=== PATIENT | male | born 1975 | race Caucasian/White ===

== ENCOUNTER → 2018-07-06 11:53 | Outpatient (CLI) | payer OTHER, SELFPAY ==
[2018-07-09 13:04] LABS: Testosterone Free 67.5 pg/mL (35.0-155.0); Testosterone Total 256 ng/dL (250-1100)
== END ==
PROVIDERS: PCP Family Medicine; Visit Provider Family Medicine
DX: F41.9 Anxiety disorder, unspecified (principal); N52.9 Male erectile dysfunction, unspecified; R68.82 Decreased libido
CPT/HCPCS: 36415; 84402; 84403

== ENCOUNTER → 2018-08-04 11:00 | Outpatient (CLI) | payer OTHER, SELFPAY ==
[2018-08-04 12:55] LABS: Alanine Aminotransferase 73 IU/L (21-72); Albumin 4.4 g/dL (3.5-5.0); Albumin Globulin Ratio 1.7 (1.0-2.8); Alkaline Phosphatase 67 U/L (38-126); Aspartate Aminotransferase 55 IU/L (17-59); Bilirubin Total 0.6 mg/dL (0.2-1.3); Blood Urea Nitrogen 15 mg/dL (9-20); Calcium 9.6 mg/dL (8.4-10.2); Carbon Dioxide 28 mmol/L (22-32); Chloride 101 mmol/L (98-107); Estimated Glomerular Filt Rate > 60.0 mL/min (>60); Globulin 2.6 g/dL (1.7-4.1); Glucose 110 mg/dL (70-100); HEMOLYSIS < 15 (0-50); Potassium 4.7 mmol/L (3.4-5.1); Sodium 140 mmol/L (137-145)
[2018-08-04 13:08] LABS: Luteinizing Hormone 1.71 mIU/mL
[2018-08-08 13:28] LABS: Testosterone Free 112.8 pg/mL (35.0-155.0); Testosterone Total 327 ng/dL (250-1100)
== END ==
PROVIDERS: PCP Family Medicine; Visit Provider Family Medicine
DX: N52.9 Male erectile dysfunction, unspecified (principal); E66.9 Obesity, unspecified
CPT/HCPCS: 36415; 80053; 83001; 83002; 84402; 84403

== ENCOUNTER → 2022-08-13 16:46 | Outpatient (CLI) | payer OTHER, SELFPAY | PROVIDERS: PCP Family Medicine; Visit Provider Family Medicine | DX: R59.9 Enlarged lymph nodes, unspecified (principal) | CPT/HCPCS: 87070 ==

== ENCOUNTER → 2022-08-13 16:56 | Outpatient (CLI) | payer OTHER, SELFPAY ==
[2022-08-13 17:46] LABS: Add Manual Diff / Slide Review NO; Basophils Absolute Auto 0 /uL (0-100); Basophils Percent Auto 0.3 % (0-2); Eosinophils Absolute Auto 100 /uL (0-450); Eosinophils Percent Auto 0.9 % (2-4); Hematocrit 43.8 % (41-53); Hemoglobin 15.6 g/dL (13.5-17.5); Lymphocytes Absolute Auto 1800 /uL (1100-4500); Lymphocytes Percent Auto 17.6 % (25-40); Mean Corpuscular HGB Conc 35.6 % (30-36); Mean Corpuscular Hemoglobin 33.9 PG (26-34); Mean Corpuscular Volume 95.3 fL (80-100); Monocytes Absolute Auto 900 /uL (0-900); Monocytes Percent Auto 8.5 % (3-14); Neutrophils Absolute Auto 7400 /uL (1500-7000); Neutrophils Percent Auto 72.7 % (50-75); Platelet Count 278 X10^3/uL (150-400); Red Cell Distribution Width 13.8 % (11.6-14.8); White Blood Cell Count 10.1 X10^3/uL (4.5-11.0)
[2022-08-13 18:31] LABS: Erythrocyte Sedimentation Rate 2 MM/HR (0-15)
[2022-08-13 18:38] LABS: Alanine Aminotransferase 38 IU/L (<50); Albumin 4.5 g/dL (3.5-5.0); Albumin Globulin Ratio 1.5 (1.0-2.8); Alkaline Phosphatase 57 U/L (38-126); Aspartate Aminotransferase 34 IU/L (17-59); BUN Creatinine Ratio 11.5 (6-22); Bilirubin Total 0.7 mg/dL (0.2-1.3); Blood Urea Nitrogen 11 mg/dL (9-20); C-Reactive Protein Quant < 0.5 mg/dL (<1.0); Calcium 9.4 mg/dL (8.4-10.2); Carbon Dioxide 29 mmol/L (22-32); Chloride 100 mmol/L (98-107); Estimated Glomerular Filt Rate > 60 mL/min (>60); Globulin 3.1 g/dL (1.7-4.1); Glucose 107 mg/dL (70-100); HEMOLYSIS < 15 (0-50); Potassium 3.9 mmol/L (3.4-5.1); Sodium 139 mmol/L (137-145); Total Protein 7.6 g/dL (6.3-8.2)
[2022-08-13 19:03] LABS: TSH w/ Reflex to FT4 2.66 uIU/mL (0.47-4.68)
== END ==
PROVIDERS: PCP Family Medicine; Referring Provider Family Medicine; Visit Provider Family Medicine
DX: R59.1 Generalized enlarged lymph nodes (principal)
CPT/HCPCS: 36415; 80053; 84443; 85025; 85651; 86140; 87070

== ENCOUNTER → 2022-08-31 10:38 | Outpatient (CLI) | payer OTHER, SELFPAY ==
[2022-08-31 12:00] LABS: Influenza A - CEPHEID Flu A NEGATIVE (NEGATIVE); Influenza B - CEPHEID Flu B NEGATIVE (NEGATIVE); Respiratory Syncytial Virus Negative (Negative)
[2022-08-31 12:02] LABS: COVID-19 CEPHEID 4-PLEX PCR Negative (Negative)
== END ==
PROVIDERS: PCP Family Medicine; Visit Provider Nurse Practitioner Family
DX: R05.9 Cough, unspecified (principal)
CPT/HCPCS: 0241U

== ENCOUNTER 2022-09-12 13:21 | Emergency (ER) | payer OTHER, SELFPAY ==
[2022-09-12] VITALS (9 sets, daily range): BP systolic 130–183; BP diastolic 69–121; PULSE 70–79; RESP 16–18; TEMP 36.6; O2SAT 96–100; BMI 31.7
[2022-09-12] MEDS: KETOROLAC 30 MG/ML VIAL 15 MG IV (17:56)
[2022-09-12] MEDS: TET,DIPH,PERTUSS(ACELL),VAC/PF 0.5 ML SYRINGE IM (17:57)
[2022-09-12] MEDS: BACITRACIN OINT 0.9 GM PCKT 1 APPLIC TOP (17:58)
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
[2022-09-12] MEDS: cephALEXin 250 MG CAPSULE 500 MG PO (19:02)
== END 2022-09-12 19:07 | disposition home or self-care (01) ==
PROVIDERS: Emergency Provider Nurse Practitioner Critical Care Medicine; PCP Family Medicine
DX: T22.212A Burn of second degree of left forearm, initial encounter (principal); Z23 Encounter for immunization; X10.2XXA Contact with fats and cooking oils, initial encounter; Y99.0 Civilian activity done for income or pay
CPT/HCPCS: 12001; 90471; 99283; 99284; 90715; J1885

== ENCOUNTER → 2022-09-22 14:12 | Outpatient (CLI) | payer OTHER, SELFPAY | PROVIDERS: PCP Family Medicine; Referring Provider Nurse Practitioner Critical Care Medicine; Visit Provider Surgery | DX: T22.212A Burn of second degree of left forearm, initial encounter (principal); X10.2XXA Contact with fats and cooking oils, initial encounter | CPT/HCPCS: 99203; 99213 ==

== ENCOUNTER → 2023-02-19 12:16 | Outpatient (CLI) | payer OTHER, SELFPAY ==
[2023-02-19 13:28] LABS: Add Manual Diff / Slide Review NO; Basophils Absolute Auto 0 /uL (0-100); Basophils Percent Auto 0.2 % (0-2); Eosinophils Absolute Auto 100 /uL (0-450); Eosinophils Percent Auto 0.7 % (2-4); Hematocrit 43.6 % (41-53); Hemoglobin 15.7 g/dL (13.5-17.5); Lymphocytes Absolute Auto 1300 /uL (1100-4500); Lymphocytes Percent Auto 14.1 % (25-40); Mean Corpuscular Hemoglobin 34.2 PG (26-34); Mean Corpuscular Volume 94.8 fL (80-100); Monocytes Absolute Auto 900 /uL (0-900); Monocytes Percent Auto 9.5 % (3-14); Neutrophils Absolute Auto 6900 /uL (1500-7000); Neutrophils Percent Auto 75.5 % (50-75); Platelet Count 269 X10^3/uL (150-400); Red Cell Distribution Width 13.1 % (11.6-14.8); White Blood Cell Count 9.1 X10^3/uL (4.5-11.0)
[2023-02-19 13:51] LABS: Alanine Aminotransferase 52 IU/L (<50); Albumin 4.3 g/dL (3.5-5.0); Albumin Globulin Ratio 1.3 (1.0-2.8); Alkaline Phosphatase 90 U/L (38-126); Aspartate Aminotransferase 42 IU/L (17-59); Bilirubin Total 0.7 mg/dL (0.2-1.3); Blood Urea Nitrogen 8 mg/dL (9-20); Calcium 8.8 mg/dL (8.4-10.2); Carbon Dioxide 24 mmol/L (22-32); Chloride 100 mmol/L (98-107); Cholesterol 187 mg/dL (140-199); Estimated Glomerular Filt Rate > 60 mL/min (>60); Globulin 3.2 g/dL (1.7-4.1); Glucose 112 mg/dL (70-100); HDL Cholesterol 30 mg/dL (40-60); Lipase 81 U/L (23-300); Potassium 4.1 mmol/L (3.4-5.1); Sodium 134 mmol/L (137-145); Total Protein 7.5 g/dL (6.3-8.2)
[2023-02-19 13:59] LABS: HEMOLYSIS 25 (0-50)
[2023-02-19 14:13] LABS: Triglycerides 805 mg/dL (35-150)
[2023-02-20 09:51] LABS: x Labcorp Estim. Avg Glu (eAG) 114 mg/dL (.); x Labcorp Hemoglobin A1c 5.6 % (4.8-5.6)
== END ==
PROVIDERS: PCP Family Medicine; Referring Provider Family Medicine; Visit Provider Family Medicine
DX: E78.5 Hyperlipidemia, unspecified (principal); F41.8 Other specified anxiety disorders; R10.30 Lower abdominal pain, unspecified
CPT/HCPCS: 36415; 80053; 80061; 83036; 83690; 85025

== ENCOUNTER → 2023-06-16 12:35 | Outpatient (CLI) | payer OTHER, SELFPAY ==
[2023-06-16 15:41] LABS: BUN Creatinine Ratio 12.6 (6-22); Blood Urea Nitrogen 11 mg/dL (9-20); Carbon Dioxide 27 mmol/L (22-32); Chloride 98 mmol/L (98-107); Cholesterol 125 mg/dL (140-199); Estimated Glomerular Filt Rate > 60 mL/min (>60); Glucose 166 mg/dL (70-100); HDL Cholesterol 26 mg/dL (40-60); HEMOLYSIS < 15 (0-50); LDL Cholesterol Calculated 36 mg/dL (<100); Potassium 3.9 mmol/L (3.4-5.1); Sodium 135 mmol/L (137-145); Triglycerides 315 mg/dL (35-150)
== END ==
PROVIDERS: PCP Family Medicine; Referring Provider Family Medicine; Visit Provider Family Medicine
DX: E78.5 Hyperlipidemia, unspecified (principal); I10 Essential (primary) hypertension
CPT/HCPCS: 36415; 80048; 80061

== ENCOUNTER → 2023-10-20 14:54 | Outpatient (CLI) | payer OTHER, SELFPAY ==
--- NOTE | 2023-10-20 14:56 | DI.RAD.S_ITS ---
PROCEDURE: XR SACRUM COCCYX MIN 2V INDICATIONS: sacral pain x 2 month TECHNIQUE: 3 views of the sacrum and coccyx acquired. COMPARISON: None. FINDINGS: Bones: No acute sacral or coccygeal fractures or dislocations. No suspicious bony lesions. Soft tissues: Visualized bowel gas pattern is normal. No suspicious soft tissue densities. IMPRESSION: No acute sacral or coccygeal fracture. No gross soft tissue abnormalities. Dictated by: Horace Bhardwaj M.D. on 10/20/2023 at 17:14 Approved by: Horace Bhardwaj M.D. on 10/20/2023 at 17:14
== END ==
LOC: RAD 14:56
PROVIDERS: PCP Family Medicine; Referring Provider Family Medicine; Visit Provider Family Medicine
DX: M53.3 Sacrococcygeal disorders, not elsewhere classified (principal)
CPT/HCPCS: 72220

== ENCOUNTER 2023-10-26 09:44 | Day surgery (SDC) | payer OTHER, SELFPAY ==
--- NOTE | 2023-10-26 | PATH_ITS ---
[facility] Accession Number: [id number] No. of containers..01 Tissue . 01 Material submitted: . colon - ASCENDING COLON POLYP . 01 Diagnosis: Ascending Colon Polyp: Tubular adenoma. MRV 10/28/2023 1601 Local . 01 Electronically signed: . Guillaume Murdock MD, PhD, Pathologist NPI- [id number] . 01 Gross description: . ASCENDING COLON POLYP: Received in formalin is 1 fragment(s) of leyva, soft tissue measuring 0.5 x 0.3 x 0.3 cm submitted entirely in 1 cassette(s) /CB 10/27/2023 1931 Local . 01 Pathologist provided ICD-10: D12.2 . 01 CPT . 625803 Specimen Comment: A courtesy copy of this report has been sent to [phone] Performed at: 01 [facility] [address] [place] [address], [place], [place] [id number] MD Manjit Palacios MD Phone: [phone]
[2023-10-26] MEDS: LACTATED RINGERS 1,000 ML 100 ML IV ×2 (10:06→11:19)
[2023-10-26 10:14] VITALS: BP 165/100; PULSE 79; RESP 16; TEMP 36.1; O2SAT 99
--- NOTE | 2023-10-26 11:07 | PM.HP.1 ---
History of Present Illness History of Present Illness Date Patient Seen: 10/26/23 Time Patient Seen: 11:07 Chief complaint: Colonoscopy Narrative: The patient presents for colorectal screening. They have never had any previous examination for such. No personal or family history of colon cancer. No major abdominal concerns today. [facility] Medical History Benign essential HTN Depression Erectile dysfunction LAYNE (obstructive sleep apnea) Alcohol use disorder Class 1 obesity RLS (restless legs syndrome) Alcohol abuse Substance abuse (~2002) Anxiety GERD (gastroesophageal reflux disease) Surgical History Anesthesia History of vasectomy History of umbilical hernia repair (~2007) History of knee surgery (~2005) Status post LASIK surgery (05/2016) Family History Father Alcoholic Grandfather Diabetes mellitus Social History marital status: number of children: 3 household members: spouse education level: high school occupational status: employed Smoking Status: Former smoker alcohol intake: current substance use type: does not use Meds Home Medications and Allergies Home Medications Medication Instructions Recorded Confirmed Type sildenafil 100 mg tablet (Viagra) 50 - 100 mg (0.5 - 1 x 100 mg) PO 02/15/23 10/26/23 Rx DAILY PRN sexual activity #30 tabs rosuvastatin 20 mg tablet (Crestor) 20 mg PO DAILY #90 tabs 03/17/23 10/26/23 Rx trazodone 50 mg tablet 50 mg PO BEDTIME PRN insomnia #90 03/17/23 10/26/23 Rx tabs losartan 50 mg tablet 50 mg PO DAILY blood pressure #90 06/16/23 10/26/23 Rx tabs fluoxetine 10 mg capsule 25 mg PO DAILY 10/20/23 10/26/23 History gabapentin 600 mg tablet 600 mg PO DAILY 10/20/23 10/26/23 History Allergies Allergy/AdvReac Type Severity Reaction Status Date / Time Penicillins Allergy PT NOT Verified 10/20/23 14:23 ABLE TO REMEMBER Exam Vital Signs (past 8 hours): - 10/26/23 10:14 Temperature 97 F L Pulse Rate 79 Respiratory Rate 16 Blood Pressure 165/100 H Pulse Oximetry 99 Oxygen Delivery Method Room Air Oxygen Delivery Method Room Air Narrative Exam Narrative: General adult man alert oriented no acute distress Chest nonlabored respiration Extremities warm well perfused Assessment & Plan Assessment & Plan narrative: The patient requires colorectal screening and colonoscopy is recommended. Technical details were discussed. Risks, benefits, alternatives explained. Risks including but not limited to myocardial infarction, aspiration, bleeding, pain, missed lesion, incomplete examination, need for further radiographic studies, colonic perforation, and need for major abdominal surgery were discussed. All questions were answered to their satisfaction, and they are in agreement with this plan.
--- NOTE | 2023-10-26 11:11 | P.OP.COLON_ITS ---
Operative Date/Time/Diagnoses Date of procedure: 10/26/23 Time of procedure: 11:11 Pre-op diagnosis: Colorectal screening Procedure & Clinicians Study performed: Colonoscopy Same procedure as scheduled: Yes Indications: Colorectal screening Surgeon: Kashmir Rodriguez Procedure Notes Procedure in detail: The history and physical was performed/updated and the patient is ASA class is 2. The procedure was discussed in detail with the patient. Potential risks complications including infection, bleeding, missed diagnosis, perforation, need for surgery, and were explained. Their questions were answered and informed consent was obtained. Patient was brought to the procedure room and placed standard monitoring equipment. The patient's vital signs were monitored continuously throughout the entire procedure. Prior to starting time-out was performed. The patient was placed in the left lateral recumbent position. Procedural sedation was administered by anesthesia. Examination began with a thorough inspection of the perianal area there was no evidence of fissures, fistulae, external hemorrhoids or cutaneous malignancy. The colonoscopy scope was then placed into the anal canal and was advanced to the cecum, which was identified by the ileocecal valve , the appendiceal orifice and the confluence of the taenia. The scope was then slowly withdrawn examining colon thoroughly in all directions, irrigating it of any residual stool. The scope was retroflexed within the rectum The patient tolerated the procedure well. They will be discharged once criteria are met. The prep was of good/excellent quality. The withdrawl time was 10 minutes. FINDINGS * Ascending colon sessile 5 mm polyp removed with cold snare * Internal hemorrhoids Specimen(s): other (Ascending colon polyp) Impression: Colonic polyp x1 Post-procedure Plan for aftercare: Follow-up is dependent on pathology findings Disposition: same day surgery
[2023-10-26 11:43] VITALS: BP 149/101; PULSE 75; RESP 16; TEMP 36.9; O2SAT 98
[2023-10-26 11:47] VITALS: BP 142/83; PULSE 79; RESP 20; TEMP 36.8; O2SAT 99
[2023-10-26 11:51] VITALS: BP 149/95; PULSE 69; RESP 16; TEMP 36.7; O2SAT 99
== END 2023-10-26 11:58 | disposition home or self-care (01) ==
PROVIDERS: PCP Family Medicine; Referring Provider Surgery; Visit Provider Surgery
PROC: 0DJD8ZZ Inspection of Lower Intestinal Tract, Via Natural or Artificial Opening Endoscopic (ICD-10-PCS; CPT 45378; principal; 2023-10-26 10:45)
DX: Z12.11 Encounter for screening for malignant neoplasm of colon (principal); K64.8 Other hemorrhoids; D12.2 Benign neoplasm of ascending colon
CPT/HCPCS: 45385; J2704

== ENCOUNTER → 2024-03-09 17:49 | Outpatient (CLI) | payer OTHER, SELFPAY | PROVIDERS: PCP Family Medicine; Visit Provider Family Medicine | DX: R35.0 Frequency of micturition (principal) | CPT/HCPCS: 87077; 87086 ==

== ENCOUNTER 2024-04-19 02:53 | Emergency (ER) | payer OTHER, SELFPAY ==
[2024-04-19 03:03] VITALS: BP 148/95; PULSE 63; RESP 18; TEMP 36.3; O2SAT 97; BMI 28.8
--- NOTE | 2024-04-19 03:07 | DI.RAD.S_ITS ---
PROCEDURE: XR CLAVICLE LT INDICATIONS: injury TECHNIQUE: 2 views of the clavicle were acquired. COMPARISON: None. FINDINGS: Bones: Slightly comminuted fracture involving mid to distal left clavicular shaft is seen with up to 1.5 cm depression at fracture site and up to 2.1 cm overlapping.. Mild acromioclavicular joint osteoarthritic changes are seen. No suspicious bony lesions. Soft tissues: No suspicious soft tissue calcifications. IMPRESSION: Slightly comminuted and depressed the left mid to distal clavicular shaft fracture as above. Mild left acromioclavicular joint osteoarthritis. No significant discrepancies from preliminary reading. Dictated by: Horace Bhardwaj M.D. on 04/19/2024 at 8:16 Approved by: Horace Bhardwaj M.D. on 04/19/2024 at 8:17
--- NOTE | 2024-04-19 03:07 | DI.RAD.S_ITS ---
PROCEDURE: XR SHOULDER LT MIN 2V INDICATIONS: injury TECHNIQUE: 3 views of the shoulder were acquired. COMPARISON: None. FINDINGS: Bones: Comminuted and depressed fracture involving left mid to distal clavicular shaft is seen. No other fracture or dislocation. Mild acromioclavicular joint osteoarthritic changes are seen. No suspicious bony lesions. Visualized ribs appear intact. Soft tissues: No suspicious soft tissue calcifications. IMPRESSION: Comminuted and depressed left mid to distal clavicular shaft fracture. No other shoulder fracture or dislocation. Mild acromioclavicular joint osteoarthritis. No significant discrepancies from preliminary reading. Dictated by: Horace Bhardwaj M.D. on 04/19/2024 at 8:18 Approved by: Horace Bhardwaj M.D. on 04/19/2024 at 8:18
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
[2024-04-19] MEDS: KETOROLAC 30 MG/ML VIAL IM (03:39)
--- NOTE | 2024-04-19 03:50 | PC.NURSE ---
discussed with pt regarding sling, fx and healing time
[2024-04-19] MEDS: HYDROCODONE/ACET 5/325 TABLET 1 TAB PO (04:23)
[2024-04-19 04:24] VITALS: BP 128/65; PULSE 64; RESP 16; O2SAT 100
== END 2024-04-19 04:26 | disposition home or self-care (01) ==
PROVIDERS: Emergency Provider Emergency Medicine; PCP Family Medicine
DX: S42.022A Displaced fracture of shaft of left clavicle, initial encounter for closed fracture (principal); V28.01XA Electric (assisted) bicycle driver injured in noncollision transport accident in nontraffic accident, initial encounter
CPT/HCPCS: 73000; 73030; 96372; 99283; 99284; J1885

== ENCOUNTER → 2024-07-20 09:48 | Outpatient (CLI) | payer OTHER, SELFPAY | LOC: WC 09:56 | PROVIDERS: PCP Family Medicine; Referring Provider Orthopaedic Surgery; Visit Provider Surgery | DX: T81.89XA Other complications of procedures, not elsewhere classified, initial encounter (principal); S21.102A Unspecified open wound of left front wall of thorax without penetration into thoracic cavity, initial encounter; L98.8 Other specified disorders of the skin and subcutaneous tissue; L92.9 Granulomatous disorder of the skin and subcutaneous tissue, unspecified | CPT/HCPCS: 17250; 99213 ==

== ENCOUNTER → 2024-07-27 10:25 | Outpatient (CLI) | payer OTHER, SELFPAY | LOC: WC 10:25 | PROVIDERS: PCP Family Medicine; Referring Provider Orthopaedic Surgery; Visit Provider Surgery | DX: T81.89XA Other complications of procedures, not elsewhere classified, initial encounter (principal); S21.102A Unspecified open wound of left front wall of thorax without penetration into thoracic cavity, initial encounter; L98.8 Other specified disorders of the skin and subcutaneous tissue; L92.9 Granulomatous disorder of the skin and subcutaneous tissue, unspecified | CPT/HCPCS: 17250; 99213 ==

== ENCOUNTER → 2024-08-03 11:01 | Outpatient (CLI) | payer OTHER, SELFPAY | LOC: WC 11:02 | PROVIDERS: PCP Family Medicine; Referring Provider Family Medicine; Visit Provider Surgery | DX: T81.89XA Other complications of procedures, not elsewhere classified, initial encounter (principal); S21.102A Unspecified open wound of left front wall of thorax without penetration into thoracic cavity, initial encounter; L98.8 Other specified disorders of the skin and subcutaneous tissue; L92.9 Granulomatous disorder of the skin and subcutaneous tissue, unspecified | CPT/HCPCS: 17250; 99213 ==

== ENCOUNTER → 2024-08-07 09:50 | Outpatient (CLI) | payer OTHER, SELFPAY | LOC: WC 09:51 | PROVIDERS: PCP Family Medicine; Referring Provider Orthopaedic Surgery; Visit Provider Surgery | DX: T81.89XD Other complications of procedures, not elsewhere classified, subsequent encounter (principal); S21.102D Unspecified open wound of left front wall of thorax without penetration into thoracic cavity, subsequent encounter | CPT/HCPCS: 99212; 99213 ==

== ENCOUNTER 2024-10-26 23:04 | Emergency (ER) | payer OTHER, SELFPAY ==
--- NOTE | 2024-10-26 23:00 | PC.NURSE ---
Светлана called concerned that patient would not be truthful about SI, has daughter at home and will not be coming [facility]. Светлана would like to be called when we have a plan for him to go somewhere/ discharge
[2024-10-26 23:01] VITALS: BP 142/98; PULSE 88; RESP 20; TEMP 36.7; O2SAT 100; BMI 31.0
--- NOTE | 2024-10-26 23:13 | ED_ITS ---
HPI - Psych <Juana Donovan DO - Last Filed: 11/07/24 08:07> General Chief Complaint: Psychiatric Symptoms Stated Complaint: SI Time Seen by Provider: 10/26/24 23:12 Source: patient and police Mode of arrival: Ambulatory Limitations: no limitations History of Present Illness HPI Narrative: 48-year-old male history of alcohol use disorder, anxiety who presents with complaint of alcohol intoxication and suicidal ideation patient states his son approximately a year ago today is his son's birthday. Patient also lost his job about 4 weeks ago after using CBD he works at the [employer] had drug testing and was released from his position and then denied unemployment. Patient states he has a lot of financial bills causing significant amounts of stress. Notes that he has been grieving his son's . Patient states he has had depressive the local 04-20 patient had made comments that were concerning, law enforcement had contact with him was not intoxicated did admit to wanting to harm himself and jumping off the bridge. Patient states that he was definitely having these thoughts he states he does not think that he wants to kill himself but feels very overwhelmed. He does state that he was drinking about a six-pack daily. He is unsure if he was ever had any withdrawal issues. He states he has not stopped drinking. Denies any other recreational drugs besides marijuana. Related Data Home Medications Medication Instructions Recorded Confirmed oxycodone-acetaminophen 5 mg-325 1 tab PO Q12H 05/08/24 05/08/24 mg tablet trazodone 100 mg tablet 100 mg PO ONCE PM 05/08/24 05/08/24 Previous Rx's Medication Instructions Recorded fluoxetine 20 mg capsule (Prozac) 20 mg PO DAILY #90 caps 01/18/24 ropinirole 2 mg tablet 2 mg PO BID #60 tabs 03/08/24 sildenafil 100 mg tablet (Viagra) 50 - 100 mg (0.5 - 1 x 100 mg) PO 04/11/24 DAILY PRN sexual activity #30 tabs hydrocodone 5 mg-acetaminophen 325 1 tab PO Q6H PRN pain #14 tabs 04/19/24 mg tablet Allergies Allergy/AdvReac Type Severity Reaction Status Date / Time Penicillins Allergy PT NOT Verified 05/08/24 11:33 ABLE TO REMEMBER Review of Systems <Juana Donovan DO - Last Filed: 11/07/24 08:07> Review of Systems ROS Unobtainable: All systems reviewed & are unremarkable except as noted in HPI and below Patient History <Juana Donovan DO - Last Filed: 11/07/24 08:07> Medical History Benign essential HTN Depression Erectile dysfunction LAYNE (obstructive sleep apnea) Alcohol use disorder Class 1 obesity RLS (restless legs syndrome) Alcohol abuse Substance abuse (~2002) Anxiety GERD (gastroesophageal reflux disease) Surgical History Anesthesia History of vasectomy History of umbilical hernia repair (~2007) History of knee surgery (~2005) Status post LASIK surgery (05/2016) Family History Father Alcoholic Grandfather Diabetes mellitus Social History marital status: number of children: 3 household members: spouse education level: high school occupational status: employed Smoking Status: Former smoker alcohol intake: current substance use type: does not use Smoking Status: Former smoker tobacco type: cigarettes alcohol intake frequency: 0-2 drinks per day Exam <Juana Donovan DO - Last Filed: 11/07/24 08:07> Narrative Exam Narrative: GENERAL: Alert and oriented x three, male in moderate distress, patient is tearful but cooperative. HEENT: Head normocephalic, atraumatic, EOMI, pupils reactive, face symmetric, moist mucous membranes NECK: Supple, full range of motion CARDIOVASCULAR: Regular rate and rhythm without murmurs, rubs or gallops. RESPIRATORY: Breath sounds equal bilaterally, no wheezes rales or rhonchi. ABDOMEN: Soft, nontender. Normoactive bowel sounds all 4 quadrants. No guarding or rebound, rigidity, no mass : No CVA tenderness EXTREMITIES: Normal range of motion, no clubbing or edema. Neurovascularly intact NEUROLOGICAL: Cranial nerves II through XII grossly intact. Moving all extremities SKIN: Warm, dry, no petechiae, no rashes or lesions. PSYCH: Expresses suicidal ideation, somewhat unsure about his intent, no thoughts of harming others. Has had chronic depressive symptoms, no hallucinations. Initial Vital Signs Initial Vital Signs: Vital Signs Temperature 98.0 F 10/26/24 23:01 Pulse Rate 88 10/26/24 23:01 Respiratory Rate 20 10/26/24 23:01 Blood Pressure 142/98 H 10/26/24 23:01 Pulse Oximetry 100 10/26/24 23:01 Oxygen Delivery Method Room Air 10/26/24 23:01 <Keisha Fernandez MD - Last Filed: 10/27/24 14:01> Initial Vital Signs Initial Vital Signs: Vital Signs Temperature 98.0 F 10/26/24 23:01 Pulse Rate 88 10/26/24 23:01 Respiratory Rate 20 10/26/24 23:01 Blood Pressure 142/98 H 10/26/24 23:01 Pulse Oximetry 100 10/26/24 23:01 Oxygen Delivery Method Room Air 10/26/24 23:01 Course <Juana Donovan DO - Last Filed: 11/07/24 08:07> Orders Ordered: Discontinued Medications Acetaminophen (Acetaminophen 325 Mg Tablet) 975 mg PO NOW ONE Stop: 10/27/24 08:57 Last Admin: 10/27/24 09:02 Dose: 975 mg Documented By: SPF Lorazepam (Lorazepam 0.5 Mg Tablet) 1 mg PO NOW ONE Stop: 10/26/24 23:13 Last Admin: 10/26/24 23:19 Dose: 1 mg Documented By: AB Nicotine (Nicotine 21 Mg Patch) 21 mg TOP NOW ONE Stop: 10/27/24 09:16 Last Admin: 10/27/24 09:31 Dose: 21 mg Documented By: SPF Vital Signs Vital signs: Vital Signs - 8 hr 10/27/24 06:48 Temperature 98.6 F Pulse Rate 81 Respiratory Rate 16 Blood Pressure 107/76 Pulse Oximetry 98 Oxygen Delivery Method Room Air <Keisha Fernandez MD - Last Filed: 10/27/24 14:01> Orders Ordered: Discontinued Medications Acetaminophen (Acetaminophen 325 Mg Tablet) 975 mg PO NOW ONE Stop: 10/27/24 08:57 Last Admin: 10/27/24 09:02 Dose: 975 mg Documented By: SPF Lorazepam (Lorazepam 0.5 Mg Tablet) 1 mg PO NOW ONE Stop: 10/26/24 23:13 Last Admin: 10/26/24 23:19 Dose: 1 mg Documented By: Nicotine (Nicotine 21 Mg Patch) 21 mg TOP NOW ONE Stop: 10/27/24 09:16 Last Admin: 10/27/24 09:31 Dose: 21 mg Documented By: RANDY Vital Signs Vital signs: Vital Signs - 8 hr 10/27/24 06:48 Temperature 98.6 F Pulse Rate 81 Respiratory Rate 16 Blood Pressure 107/76 Pulse Oximetry 98 Oxygen Delivery Method Room Air MDM - Psych <Juana Donovan, - Last Filed: 11/07/24 08:07> Lab Data 10/26/24 23:28 10/26/24 23:28 Labs: Lab Results 10/26/24 10/27/24 Range/Units 23:28 00:01 WBC 11.4 H (4.5-11.0) X10^3/uL RBC 4.66 (4.5-5.9) X10^6/uL Hgb 15.4 (13.5-17.5) g/dL Hct 44.7 (41-53) % MCV 96.1 (80-100) fL MCH 33.1 (26-34) PG MCHC 34.4 (30-36) % RDW 13.9 (11.6-14.8) % Plt Count 307 (150-400) X10^3/uL Neut % (Auto) 68.8 (50-75) % Lymph % (Auto) 19.7 L (25-40) % [place] % (Auto) 9.5 (3-14) % Eos % (Auto) 1.4 L (2-4) % Baso % (Auto) 0.6 (0-2) % Neut # (Auto) 7800 H (1915-7002) /uL Lymph # (Auto) 2200 (9344-4247) /uL [place] # (Auto) 1100 H (0-900) /uL Eos # (Auto) 200 (0-450) /uL Baso # (Auto) 100 (0-100) /uL Sodium 134 L (137-145) mmol/L Potassium 4.0 (3.4-5.1) mmol/L Chloride 99 (98-107) mmol/L Carbon Dioxide 22 (22-32) mmol/L BUN 12 (9-20) mg/dL Creatinine 1.01 (0.66-1.25) mg/dL Estimated GFR > 60 (>60) mL/min BUN/Creatinine Ratio 11.9 (6-22) Glucose 97 (70-100) mg/dL Calcium 8.9 (8.4-10.2) mg/dL Total Bilirubin 0.8 (0.2-1.3) mg/dL AST 36 (17-59) IU/L ALT 34 (<50) IU/L Alkaline Phosphatase 75 (38-126) U/L Total Protein 7.8 (6.3-8.2) g/dL Albumin 4.8 (3.5-5.0) g/dL Globulin 3.0 (1.7-4.1) g/dL Albumin/Globulin Ratio 1.6 (1.0-2.8) TSH 5.86 H (0.47-4.68) uIU/mL Free T4 0.94 (0.78-2.19) ng/dL Salicylates < 1.0 (<20) mg/dL U Opiates 300ng/mL cut Negative (Negative) Ur Oxycodone Screen Negative (Negative) Urine Methadone Screen Negative (Negative) Acetaminophen < 10 (10-30) ug/mL Ur Barbiturates Screen Negative (Negative) U Tricyclic Antidepress Negative (Negative) Ur Phencyclidine Scrn Negative (Negative) Ur Amphetamines Screen Negative (Negative) U Methamphetamines Scrn Negative (Negative) Ur MDMA Scrn (Ecstasy) Negative (Negative) U Benzodiazepines Scrn Negative (Negative) Urine Cocaine Screen Negative (Negative) U Marijuana (THC) Screen Negative (Negative) Urine pH Normal (Normal) Urine Specific [place] Normal (Normal) Ethyl Alcohol 204 H ( - 10) mg/dL Ur Creatinine Normal (Normal) Urine Dip Bedside Urine Glucose Negative Bedside Urine Bilirubin - Negative Bedside Urine Ketone - Negative Urine Specific [place] 1.010 Bedside Urine Occult Blood - Negative Bedside Urine pH 6.0 Bedside Urine Urobilinogen - Negative Bedside Urine Nitrite - Negative Bedside Urine Leukocytes - Negative Esterase MDM Narrative Medical decision making narrative: 48-year-old male admits to alcohol intoxication this evening feeling suicidal does have a plan unsure of his intent he denies wanting to harm others. Patient has had significant stressors his son by suicide today is his birthday, he lost his job 4-6 weeks ago secondary to using CBD. Patient is agreeable to stay here tonight, has a evaluation and after no longer intoxicated have re- evaluation. Law enforcement states he was initially somewhat aggressive but calmed after that and he expresses intent to stay here overnight with us and has been cooperative so far. Did discuss giving dose of medication to help him feel more calm he was agreeable to this he has had Valium in the past we will give a dose of oral Ativan. EDUCATIONAL INTERPRETER consult in place. Labs labs show white count 11.4 hemoglobin of 15.4 platelets of 307. Chemistry shows sodium 134 otherwise appropriate electrolytes creatinine 1.01 glucose of 97 LFTs are negative TSH is 5.86 but free T4 0.94. ETOH is 204 Tylenol and salicylates are negative UDS is negative. Patient signed out to Dr. Fernandez for reevaluation. Patient was medically cleared plan for re-evaluation in the morning with EDUCATIONAL INTERPRETER. After discussion with EDUCATIONAL INTERPRETER, patient is no longer suicidal not interested in inpatient treatment. He is given resources for counseling, continued medical management for his depression, inpatient and outpatient alcohol use disorder resources and crisis line numbers as well as AA schedules. His is coming to pick him up. Recommended he continue his fluoxetine. Encouraged him to return to the ER if he again feels suicidal. <Keisha Fernandez MD - Last Filed: 10/27/24 14:01> Lab Data Labs: Lab Results 10/26/24 10/27/24 Range/Units 23:28 00:01 WBC 11.4 H (4.5-11.0) X10^3/uL RBC 4.66 (4.5-5.9) X10^6/uL Hgb 15.4 (13.5-17.5) g/dL Hct 44.7 (41-53) % MCV 96.1 (80-100) fL MCH 33.1 (26-34) PG MCHC 34.4 (30-36) % RDW 13.9 (11.6-14.8) % Plt Count 307 (150-400) X10^3/uL Neut % (Auto) 68.8 (50-75) % Lymph % (Auto) 19.7 L (25-40) % [place] % (Auto) 9.5 (3-14) % Eos % (Auto) 1.4 L (2-4) % Baso % (Auto) 0.6 (0-2) % Neut # (Auto) 7800 H (2565-4433) /uL Lymph # (Auto) 2200 (6319-3838) /uL [place] # (Auto) 1100 H (0-900) /uL Eos # (Auto) 200 (0-450) /uL Baso # (Auto) 100 (0-100) /uL Sodium 134 L (137-145) mmol/L Potassium 4.0 (3.4-5.1) mmol/L Chloride 99 (98-107) mmol/L Carbon Dioxide 22 (22-32) mmol/L BUN 12 (9-20) mg/dL Creatinine 1.01 (0.66-1.25) mg/dL Estimated GFR > 60 (>60) mL/min BUN/Creatinine Ratio 11.9 (6-22) Glucose 97 (70-100) mg/dL Calcium 8.9 (8.4-10.2) mg/dL Total Bilirubin 0.8 (0.2-1.3) mg/dL AST 36 (17-59) IU/L ALT 34 (<50) IU/L Alkaline Phosphatase 75 (38-126) U/L Total Protein 7.8 (6.3-8.2) g/dL Albumin 4.8 (3.5-5.0) g/dL Globulin 3.0 (1.7-4.1) g/dL Albumin/Globulin Ratio 1.6 (1.0-2.8) TSH 5.86 H (0.47-4.68) uIU/mL Free T4 0.94 (0.78-2.19) ng/dL Salicylates < 1.0 (<20) mg/dL U Opiates 300ng/mL cut Negative (Negative) Ur Oxycodone Screen Negative (Negative) Urine Methadone Screen Negative (Negative) Acetaminophen < 10 (10-30) ug/mL Ur Barbiturates Screen Negative (Negative) U Tricyclic Antidepress Negative (Negative) Ur Phencyclidine Scrn Negative (Negative) Ur Amphetamines Screen Negative (Negative) U Methamphetamines Scrn Negative (Negative) Ur MDMA Scrn (Ecstasy) Negative (Negative) U Benzodiazepines Scrn Negative (Negative) Urine Cocaine Screen Negative (Negative) U Marijuana (THC) Screen Negative (Negative) Urine pH Normal (Normal) Urine Specific [place] Normal (Normal) Ethyl Alcohol 204 H ( - 10) mg/dL Ur Creatinine Normal (Normal) Urine Dip Bedside Urine Glucose Negative Bedside Urine Bilirubin - Negative Bedside Urine Ketone - Negative Urine Specific [place] 1.010 Bedside Urine Occult Blood - Negative Bedside Urine pH 6.0 Bedside Urine Urobilinogen - Negative Bedside Urine Nitrite - Negative Bedside Urine Leukocytes - Negative Esterase MDM Narrative Medical decision making narrative: 48-year-old male admits to alcohol intoxication this evening feeling suicidal does have a plan unsure of his intent he denies wanting to harm others. Patient has had significant stressors his son by suicide today is his birthday, he lost his job 4-6 weeks ago secondary to using CBD. Patient is agreeable to stay here tonight, has a evaluation and after no longer intoxicated have re- evaluation. Law enforcement states he was initially somewhat aggressive but calmed after that and he expresses intent to stay here overnight with us and has been cooperative so far. Did discuss giving dose of medication to help him feel more calm he was agreeable to this he has had Valium in the past we will give a dose of oral Ativan. EDUCATIONAL INTERPRETER consult in place. Labs labs show white count 11.4 hemoglobin of 15.4 platelets of 307. Chemistry shows sodium 134 otherwise appropriate electrolytes creatinine 1.01 glucose of 97 LFTs are negative TSH is 5.86 but free T4 0.94. ETOH is 204 Tylenol and salicylates are negative UDS is negative. Patient was medically cleared plan for re-evaluation in the morning with EDUCATIONAL INTERPRETER. After discussion with EDUCATIONAL INTERPRETER, patient is no longer suicidal not interested in inpatient treatment. He is given resources for counseling, continued medical management for his depression, inpatient and outpatient alcohol use disorder resources and crisis line numbers as well as AA schedules. His is coming to pick him up. Recommended he continue his fluoxetine. Encouraged him to return to the ER if he again feels suicidal. Discharge Plan Departure Patient Disposition: Home Clinical Impression: Suicidal ideation, Alcohol intoxication, Acute situational disturbance Instructions: DI for Alcohol Use Disorder, DI for Suicidal Ideation-Adult Activity Restrictions/Additional Instructions: Thank you for coming in last night Now that you have sober, you has been very clear that your no longer thinking about killing yourself. You did speak with our social studies department chair, she is given you resources for outpatient alcohol treatment, AA meetings can also be helpful. Additionally, she is given you resources to follow up with depression and consideration of suicide with providers who can provide counseling as well as medications. We have given you resources for the crisis line if you feel like you need to talk and if you feel that you need to her yourself or hurt anybody else you are welcome to return to the emergency department Prescriptions: No Action sildenafil [Viagra] 100 mg tablet 50 - 100 mg PO DAILY PRN (Reason: sexual activity) Qty: 30 11RF Rx Instructions: take 30 minutes to 4 hours before activity ropinirole 2 mg tablet 2 mg PO BID Qty: 60 5RF oxycodone-acetaminophen 5-325 mg tablet 1 tab PO Q12H trazodone 100 mg tablet 100 mg PO ONCE PM fluoxetine [Prozac] 20 mg capsule 20 mg PO DAILY Qty: 90 3RF hydrocodone-acetaminophen 5-325 mg tablet 1 tab PO Q6H PRN (Reason: pain) Qty: 14 0RF Referrals: Florin Edgar DO [Primary Care Provider] - Stand Alone Forms: Patient Portal/API/Survey
[2024-10-26] MEDS: LORazepam 0.5 MG TABLET 1 MG PO (23:19)
--- NOTE | 2024-10-26 23:32 | PC.NURSE ---
Pt verbally gives consent for us to speak freely with his about his care.
[2024-10-26 23:42] LABS: Add Manual Diff / Slide Review NO; Basophils Absolute Auto 100 /uL (0-100); Basophils Percent Auto 0.6 % (0-2); Eosinophils Absolute Auto 200 /uL (0-450); Eosinophils Percent Auto 1.4 % (2-4); Hematocrit 44.7 % (41-53); Hemoglobin 15.4 g/dL (13.5-17.5); Lymphocytes Absolute Auto 2200 /uL (1100-4500); Lymphocytes Percent Auto 19.7 % (25-40); Mean Corpuscular HGB Conc 34.4 % (30-36); Mean Corpuscular Hemoglobin 33.1 PG (26-34); Mean Corpuscular Volume 96.1 fL (80-100); Monocytes Absolute Auto 1100 /uL (0-900); Monocytes Percent Auto 9.5 % (3-14); Neutrophils Absolute Auto 7800 /uL (1500-7000); Neutrophils Percent Auto 68.8 % (50-75); Platelet Count 307 X10^3/uL (150-400); Red Blood Cell Count 4.66 X10^6/uL (4.5-5.9); Red Cell Distribution Width 13.9 % (11.6-14.8); White Blood Cell Count 11.4 X10^3/uL (4.5-11.0)
[2024-10-26 23:58] LABS: Acetaminophen < 10 ug/mL (10-30); Alanine Aminotransferase 34 IU/L (<50); Albumin 4.8 g/dL (3.5-5.0); Albumin Globulin Ratio 1.6 (1.0-2.8); Alkaline Phosphatase 75 U/L (38-126); Aspartate Aminotransferase 36 IU/L (17-59); BUN Creatinine Ratio 11.9 (6-22); Bilirubin Total 0.8 mg/dL (0.2-1.3); Blood Urea Nitrogen 12 mg/dL (9-20); Calcium 8.9 mg/dL (8.4-10.2); Carbon Dioxide 22 mmol/L (22-32); Chloride 99 mmol/L (98-107); Estimated Glomerular Filt Rate > 60 mL/min (>60); Ethanol (ETOH) 204 mg/dL; Glucose 97 mg/dL (70-100); HEMOLYSIS < 15 (0-50); Salicylate < 1.0 mg/dL (<20); Sodium 134 mmol/L (137-145); Total Protein 7.8 g/dL (6.3-8.2)
[2024-10-27 00:19] LABS: TSH w/ Reflex to FT4 5.86 uIU/mL (0.47-4.68)
[2024-10-27 00:28] LABS: Ur Creatinine Normal (Normal); Ur Specific Gravity Normal (Normal); Urine Amphetamines Negative (Negative); Urine Barbiturates Negative (Negative); Urine Benzodiazepines Negative (Negative); Urine Cocaine Negative (Negative); Urine MDMA Negative (Negative); Urine Methadone Negative (Negative); Urine Methamphetamines Negative (Negative); Urine Opiates Negative (Negative); Urine Oxycodone Negative (Negative); Urine Phencyclidine Negative (Negative); Urine THC Negative (Negative); Urine Tricyclic Antidepressant Negative (Negative); Urine pH Normal (Normal)
[2024-10-27 00:48] LABS: Free T4, Direct Thyroxine 0.94 ng/dL (0.78-2.19)
--- NOTE | 2024-10-27 04:08 | PC.NURSE ---
Pt has been calm and cooperative throughout visit. Sleeping after labs completed. At this time will monitor hourly, and pt will see CAR RENTAL CLERK in AM.
[2024-10-27 06:48] VITALS: BP 107/76; PULSE 81; RESP 16; TEMP 37; O2SAT 98
--- NOTE | 2024-10-27 09:00 | PC.NURSE ---
PT awake and is sitting up in bed drinking ice water. He requests tylenol for a headache and a vape pen. Educated pt that I can talk to the doctor about a nicotine patient. Pt agreeable. Pt had slept through the night but says he didnt get very good rest. He feels dehydrated. Patient states he is no longer having thoughts of SI however he is overwhelmed with his circumstances including losing his job at the [employer] after 18 years. He applied for unemployment but was denied. He did file for an appeal as he was fired due to a positive thc drug screen at his work. Pt states he was using THC while on fmla and had stopped prior to returning to work. He endorses concern for paying the mortgage on 2 of his properties, his brand new truck, medical bills, his boat, and having mouths to feed. He knows he is drinking too much and is trying to cut back but self medicates in order to get sleep at night. He also has trazodone he can take when unable to sleep. He did go to alcohol rehab in december last year and was drinking much more before rehab. Pt is willing to discuss alcohol rehab but his biggest concern is finances and covering the bills. Tensions have been higher between spouse and his with the loss of their son last year in may when he took his own life. Pt has 15 applications in to jobs.
[2024-10-27] MEDS: ACETAMINOPHEN 325 MG TABLET 975 MG PO (09:02)
[2024-10-27] MEDS: NICOTINE 21 MG PATCH TOP (09:31)
[2024-10-27 14:08] VITALS: BP 139/100; PULSE 89; RESP 18; O2SAT 95
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
== END 2024-10-27 14:10 | disposition home or self-care (01) ==
PROVIDERS: Emergency Medicine; Emergency Provider Emergency Medicine; PCP Family Medicine
DX: R45.851 Suicidal ideations (principal); F10.129 Alcohol abuse with intoxication, unspecified; Y90.7 Blood alcohol level of 200-239 mg/100 ml; F43.0 Acute stress reaction
CPT/HCPCS: 36415; 80053; 80305; 80320; 80329; 81003; 84439; 84443; 85025; 99284; G0480